=== PATIENT | male | born 1970 | race Asian ===

== ENCOUNTER 2021-03-08 19:50 | Emergency (ER) | payer OTHER ==
[~2021-03-08] VITALS: Ht 177.8 cm; Wt 75.7 kg
[2021-03-08 20:09] VITALS: BP_SYST 135
--- NOTE | 2021-03-08 20:14 | NUR ---
Patient to ER bed 07 to gown for evaluation. Side rails up.
--- NOTE | 2021-03-08 20:18 | NUR ---
Dr. Holloway bedside for pt eval
--- NOTE | 2021-03-08 20:20 | NUR ---
Pt BIB family to ED with history of neurofibromatosis, presenting to the ED for evaluation of constant, mild to moderate, sharp pain to the right buttock associated with redness and swelling. Patient reports that he has occasional lesions that appear to his buttocks, which she is usually able to pop, but recently unable to palpate a lesion on his right buttock. The patient reports that the pain is made worse with movement, touch, and long periods of sitting
[2021-03-08] MEDS ORDERED: LIDOCAINE 2%, 20 ML MDV INJ ONE (20:30)
[2021-03-08] MEDS ORDERED: KETOROLAC TROMETHAMINE 60 MG/2 ML VIAL IM ONE (20:30)
[2021-03-08] MEDS ORDERED: CEPH-548 PO (20:37)
[2021-03-08] MEDS ORDERED: IBUP-1969 PO ×2 (20:37→21:10)
[2021-03-08] MEDS ORDERED: SULF1TAB47 PO (20:37)
--- NOTE | 2021-03-08 21:03 | NUR ---
Dr. Holloway bedside for procedure, well tolerated
[2021-03-08] MEDS ORDERED: HYDR-3917 PO (21:10)
--- NOTE | 2021-03-08 21:29 | NUR ---
Patient given written and verbal discharge instructions and verbalizes understanding. ER MD discussed with patient the results and treatment provided. Patient in stable condition. ID arm band removed. Rx of [place]ers and Ibuprofen given. Patient educated on pain management and to follow up with PMD. Pain Scale 0/10 Opportunity for questions provided and answered. Medication side effect fact sheet provided.
[2021-03-08 21:30] VITALS: BP_SYST 135
== END 2021-03-08 21:29 | disposition home or self-care (01) ==
LOC: SED 19:50
DX: L02.31 Cutaneous abscess of buttock (principal); Q85.00 Neurofibromatosis, unspecified; Z79.899 Other long term (current) drug therapy
CPT/HCPCS: 10060; 99283; J1885; J2001

== ENCOUNTER 2021-03-10 09:19 | Emergency (ER) | payer OTHER ==
[~2021-03-10] VITALS: Ht 177.8 cm; Wt 76.2 kg
[2021-03-10 09:19] VITALS: BP_SYST 145
[~2021-03-10 09:19] MED LIST: HYDR-3917 PO; IBUP-1969 PO
--- NOTE | 2021-03-10 09:20 | NUR ---
BROUGHT BACK TO BED #7 AND TRIAGED. REPORT GIVEN TO MARGO
--- NOTE | 2021-03-10 09:34 | NUR ---
Pt. came in for wound recheck, has abcess to buttocks lanced, drained and packed , self removed packing this morning states pain much improved and his continuing taking antibiotics.
--- NOTE | 2021-03-10 10:08 | NUR ---
ER at bedside examining patient.
[2021-03-10 10:20] VITALS: BP_SYST 135
--- NOTE | 2021-03-10 10:20 | NUR ---
Patient given written and verbal discharge instructions and verbalizes understanding. Dr. Morocho discussed with patient the results and treatment provided. Patient in stable condition. ID arm band removed. Patient to follow up with PMD. Opportunity for questions provided and answered.
== END 2021-03-10 10:20 | disposition home or self-care (01) ==
LOC: SED 09:19
DX: L02.31 Cutaneous abscess of buttock (principal); Z48.00 Encounter for change or removal of nonsurgical wound dressing
CPT/HCPCS: 99281